=== PATIENT | female | born 1980 | race Caucasian/White ===

== ENCOUNTER → 2017-01-28 | Outpatient (CLI) | payer BC ==
--- NOTE | 2017-01-28 16:26 | DIAGNOSTIC IMAGING REPORT ---
PROCEDURE: MR CERVICAL SPINE W/O CONT INDICATION: Chronic neck pain with bilateral radiculopathy. TECHNIQUE: Noncontrast T1, T2, and STIR sagittal images. T2 and gradient axial images. COMPARISON: None. FINDINGS: Normal alignment without fracture or suspicious osseous lesion. Straightening of the cervical spine with mild to moderate C5-6 degenerative changes. Normal craniocervical junction. Paraspinal soft tissues are unremarkable. C2-3: Normal appearance. C3-4: Normal appearance. C4-5: Small right foraminal disc bulge/spur complex and facet arthropathy resulting in mild right foraminal stenosis. There is no spinal stenosis. C5-6: Moderate broad-based disc bulge/spur complex and facet arthropathy resulting in moderate bilateral foraminal stenosis. There is mild spinal stenosis with flattening of the cord C6-7: Small right foraminal disc bulge/spur complex with facet arthropathy resulting in mild right foraminal stenosis. There is mild spinal stenosis. C7-T1: Normal appearance. IMPRESSION: 1. Mild degenerative changes with straightening of the cervical spine suggestive of muscular spasm. 2. C4-5 right foraminal disc bulge with mild right foraminal stenosis 3. Moderate C5-6 in disc bulge with moderate bilateral foraminal stenosis and mild spinal stenosis with flattening of the cord 4. C6-7 right foraminal disc bulge with mild right foraminal stenosis
== END ==
LOC: MRI SRH 14:25
DX: M50.221 Other cervical disc displacement at C4-C5 level (principal); M50.322 Other cervical disc degeneration at C5-C6 level; M50.223 Other cervical disc displacement at C6-C7 level; M48.02 Spinal stenosis, cervical region